=== PATIENT | male | born 1935 | race Caucasian/White ===

== ENCOUNTER → 2023-07-25 08:28 | Outpatient (CLI) | payer OTHER, SELFPAY ==
[2023-06-24 21:12] VITALS: BMI 31.5
[2023-07-25 09:42] LABS: Add Manual Diff / Slide Review NO; Basophils Absolute Auto 100 /uL (0-100); Basophils Percent Auto 0.8 % (0-2); Eosinophils Absolute Auto 300 /uL (0-450); Eosinophils Percent Auto 4.9 % (2-4); Hematocrit 34.7 % (41-53); Hemoglobin 11.6 g/dL (13.5-17.5); Lymphocytes Absolute Auto 1800 /uL (1100-4500); Lymphocytes Percent Auto 27.1 % (25-40); Mean Corpuscular HGB Conc 33.5 % (30-36); Mean Corpuscular Hemoglobin 30.1 PG (26-34); Monocytes Absolute Auto 700 /uL (0-900); Monocytes Percent Auto 10.6 % (3-14); Neutrophils Absolute Auto 3800 /uL (1500-7000); Neutrophils Percent Auto 56.6 % (50-75); Platelet Count 191 X10^3/uL (150-400); Red Blood Cell Count 3.86 X10^6/uL (4.5-5.9); Red Cell Distribution Width 19.5 % (11.6-14.8); White Blood Cell Count 6.8 X10^3/uL (4.5-11.0)
[2023-07-25 09:50] LABS: HEMOLYSIS < 15 (0-50); Iron 107 ug/dL (49-181)
[2023-07-25 09:51] LABS: Alanine Aminotransferase 32 IU/L (<50); Albumin 3.7 g/dL (3.5-5.0); Albumin Globulin Ratio 1.1 (1.0-2.8); Alkaline Phosphatase 85 U/L (38-126); Aspartate Aminotransferase 34 IU/L (17-59); BUN Creatinine Ratio 35.3 (6-22); Bilirubin Total 0.6 mg/dL (0.2-1.3); Blood Urea Nitrogen 61 mg/dL (9-20); Calcium 10.7 mg/dL (8.4-10.2); Carbon Dioxide 39 mmol/L (22-32); Chloride 96 mmol/L (98-107); Estimated Glomerular Filt Rate 37 mL/min (>60); Globulin 3.5 g/dL (1.7-4.1); Glucose 70 mg/dL (80-110); HEMOLYSIS < 15 (0-50); Potassium 4.2 mmol/L (3.4-5.1); Sodium 139 mmol/L (137-145); Total Protein 7.2 g/dL (6.3-8.2)
[2023-07-25 10:00] LABS: Percent Iron Saturation 46 % (20-50); Total Iron Binding Capacity 231 ug/dL (261-462); Transferrin 172 mg/dL (206-381)
[2023-07-25 10:39] LABS: Vitamin B12 506 pg/mL (239-931)
[2023-07-28 17:10] LABS: Appearance Urine UA CLEAR; Bilirubin Urine UA NEGATIVE (NEGATIVE); Color Urine UA YELLOW; Glucose Urine UA NEGATIVE (Negative); Ketones Urine UA NEGATIVE (NEGATIVE); Leukocyte Esterase Urine UA NEGATIVE (NEGATIVE); Nitrite Urine UA NEGATIVE (Negative); Occult Blood Urine UA NEGATIVE (Negative); Protein Urine UA NEGATIVE (Negative); Specific Gravity Urine UA <=1.005 (1.000-1.035); Urobilinogen Urine UA 0.2 E.U./dL (0.2)
[2023-07-28 17:18] LABS: Bacteria Urine None Seen; Culture Indicated Urine Cult Not Indicated; RBC Urine None Seen (0-5/HPF); Squamous Epithelial Cell Urine 0-1 /HPF (0-5/HPF); WBC Urine None Seen (0-5/HPF)
== END ==
PROVIDERS: PCP Family Medicine; Referring Provider Family Medicine; Visit Provider Family Medicine
DX: N18.4 Chronic kidney disease, stage 4 (severe) (principal); D64.89 Other specified anemias; I50.42 Chronic combined systolic (congestive) and diastolic (congestive) heart failure
CPT/HCPCS: 36415; 80053; 81001; 82607; 83540; 83550; 85025

== ENCOUNTER → 2023-08-17 08:01 | Outpatient (CLI) | payer OTHER, SELFPAY ==
[2023-06-24 21:12] VITALS: BMI 31.5
[2023-08-17 08:46] LABS: Add Manual Diff / Slide Review NO; Basophils Absolute Auto 100 /uL (0-100); Basophils Percent Auto 0.9 % (0-2); Eosinophils Absolute Auto 200 /uL (0-450); Eosinophils Percent Auto 3.1 % (2-4); Hematocrit 33.2 % (41-53); Hemoglobin 11.1 g/dL (13.5-17.5); Lymphocytes Absolute Auto 1600 /uL (1100-4500); Lymphocytes Percent Auto 24.3 % (25-40); Mean Corpuscular HGB Conc 33.4 % (30-36); Mean Corpuscular Volume 89.8 fL (80-100); Monocytes Absolute Auto 500 /uL (0-900); Monocytes Percent Auto 7.8 % (3-14); Neutrophils Absolute Auto 4300 /uL (1500-7000); Neutrophils Percent Auto 63.9 % (50-75); Platelet Count 217 X10^3/uL (150-400); Red Cell Distribution Width 19.2 % (11.6-14.8); White Blood Cell Count 6.7 X10^3/uL (4.5-11.0)
[2023-08-17 08:56] LABS: Alanine Aminotransferase 17 IU/L (<50); Albumin 3.6 g/dL (3.5-5.0); Alkaline Phosphatase 79 U/L (38-126); Aspartate Aminotransferase 25 IU/L (17-59); BUN Creatinine Ratio 25.9 (6-22); Bilirubin Total 0.8 mg/dL (0.2-1.3); Blood Urea Nitrogen 37 mg/dL (9-20); Calcium 9.5 mg/dL (8.4-10.2); Carbon Dioxide 38 mmol/L (22-32); Chloride 96 mmol/L (98-107); Estimated Glomerular Filt Rate 47 mL/min (>60); Globulin 3.5 g/dL (1.7-4.1); Glucose 129 mg/dL (80-110); HEMOLYSIS < 15 (0-50); Potassium 4.3 mmol/L (3.4-5.1); Sodium 138 mmol/L (137-145); Total Protein 7.1 g/dL (6.3-8.2)
[2023-08-17 08:57] LABS: HEMOLYSIS < 15 (0-50); Iron 83 ug/dL (49-181)
[2023-08-17 09:08] LABS: Percent Iron Saturation 40 % (20-50); Total Iron Binding Capacity 205 ug/dL (261-462); Transferrin 159 mg/dL (206-381)
== END ==
LOC: LAB 08:01
PROVIDERS: PCP Family Medicine; Referring Provider Family Medicine; Visit Provider Family Medicine
DX: N18.30 Chronic kidney disease, stage 3 unspecified (principal); I10 Essential (primary) hypertension; I50.9 Heart failure, unspecified; D64.9 Anemia, unspecified
CPT/HCPCS: 36415; 80053; 83540; 83550; 85025

== ENCOUNTER 2023-11-17 10:11 | Emergency (ER) | payer OTHER, SELFPAY ==
[2023-06-24 21:12] VITALS: BMI 31.5
[2023-11-17 10:15] VITALS: BP 146/70; PULSE 63; RESP 15; TEMP 36.4; O2SAT 95; BMI 25.9
--- NOTE | 2023-11-17 10:18 | DI.RAD.S_ITS ---
PROCEDURE: XR TIBIA FIBULA LT 2V INDICATIONS: fall, laceration TECHNIQUE: 2 views of the tibia and fibula were acquired. COMPARISON: None. FINDINGS: Bones: No fractures or dislocations. No suspicious bony lesions. Tricompartmental knee arthroplasty. Soft tissues: No suspicious soft tissue calcifications or masses. Soft tissue laceration to the anterior monteiro. Vascular calcifications. IMPRESSION: Anterior monteiro laceration without underlying bony abnormality. Dictated by: Escobar Oneill M.D. on 11/17/2023 at 11:58 Approved by: Escobar Oneill M.D. on 11/17/2023 at 11:59
--- NOTE | 2023-11-17 11:02 | ED_ITS ---
HPI - Fall <Aydin Jean PA-C - Last Filed: 11/17/23 12:06> General Chief Complaint: Fall Stated Complaint: Trip/fall,laceration on left monteiro,no thin/no loc Time Seen by Provider: 11/17/23 10:18 Source: patient and EMS Mode of arrival: EMS History of Present Illness HPI Narrative: This is a 87-year-old male presents emergency department due to a mechanical ground level fall where he states that he was using his walker when there was a heavy just a wind causing him to fall over an injuring his left monteiro. He was laceration to his left monteiro. He states he was not have any knee, ankle hip, or any other pain to the rest of his body. He had not hit his head or lose conscious. He was not on blood thinners. Tetanus is not up-to-date. Related Data Home Medications Medication Instructions Recorded Confirmed acetaminophen 325 mg tablet 650 mg PO PRN PRN Pain, Mild 04/22/22 10/03/23 vit C,A-Vq-uxdeg-lutein-zeaxan 1 tab PO DAILY 03/04/23 10/03/23 [PreserVision AREDS-2] Previous Rx's Medication Instructions Recorded polyethylene glycol 3350 17 17 g PO DAILY PRN constipation 08/10/22 gram/dose oral powder (Miralax) #238 grams Disabled Parking Permint #1 ea 10/14/22 nasal canula #30 ea 11/01/22 oxygen concentrator #1 ea 11/01/22 Oxygen Mask #1 ea 01/28/23 melatonin 3 mg tablet 3 mg PO BEDTIME PRN insomnia #30 02/10/23 tabs ascorbic acid (vitamin C) 500 mg 500 mg PO DAILY #90 tabs 05/18/23 tablet alfuzosin 10 mg tablet,extended 10 mg PO DAILY #90 tabs 07/28/23 release 24 hr (Uroxatral) amoxicillin 500 mg capsule 500 mg PO TID 90 days #270 caps 07/28/23 atorvastatin 40 mg tablet 40 mg PO QPM #90 tabs 07/28/23 docusate sodium 100 mg capsule 100 mg PO DAILY #90 caps 07/28/23 metoprolol tartrate 50 mg tablet 50 mg PO BID #180 tabs 07/28/23 pantoprazole 20 mg tablet,delayed 20 mg PO DAILY #90 tabs 07/28/23 release pramipexole 0.25 mg tablet 0.25 mg PO TID #270 tabs 07/28/23 furosemide 20 mg tablet 20 mg PO DAILY #90 tabs 08/01/23 ferrous sulfate 325 mg (65 mg 325 mg PO DAILY #90 tabs 08/31/23 iron) tablet lisinopril 40 mg tablet 40 mg PO QAM #90 tabs 09/07/23 torsemide 40 mg tablet 40 mg PO DAILY #90 tabs 10/13/23 Allergies Allergy/AdvReac Type Severity Reaction Status Date / Time daptomycin Allergy Severe severe Verified 11/17/23 10:26 eosinophilic pneumonia ceftriaxone Allergy Rash Verified 11/17/23 10:26 Review of Systems <Aydin Jean PA-C - Last Filed: 11/17/23 12:06> Review of Systems Narrative: GENERAL: Denies chills, fatigue, malaise, fever, sweats. HEENT: Denies sinus pain, ear pain, sore throat, difficulty swallowing, dizziness. RESPIRATORY: Denies dyspnea, cough, wheezing, hemoptysis, sputum. CARDIOVASCULAR: Denies chest pain, palpitations, orthopnea, edema, GASTROINTESTINAL: Denies nausea, vomiting, abdominal pain, diarrhea, constipation, melena. : Denies dysuria, frequency, incontinence, hematuria, urinary retention. MUSCULOSKELETAL: denies weakness, joint pain, or bony pain SKIN: Left monteiro laceration NEUROLOGIC: Denies weakness, headache, numbness, change in speech, confusion, seizures, incoordination. PSYCHIATRIC: No concerning psychosocial issues. 12 point review of systems is negative except for those stated above Patient History <Aydin Jean PA-C - Last Filed: 11/17/23 12:06> Medical History Bed sore Renal insufficiency Thrombocytopenia Superficial laceration Toe pain Scalp laceration Chronic bronchitis Cellulitis of toe, right Chronic bronchitis Bilateral leg edema Seasonal allergic rhinitis Cellulitis History of atrial fibrillation Erectile dysfunction BPH w urinary obs/LUTS Venous stasis History of DVT (deep vein thrombosis) History of pulmonary embolism Osteoarthritis of right hip Right hip pain Right shoulder pain BPH (benign prostatic hyperplasia) Heart murmur Atrial fibrillation Low back pain (~12/2015) GERD (gastroesophageal reflux disease) (Unknown) Arthritis (Unknown) Restless leg syndrome (Unknown) Macular degeneration of both eyes (~07/2016) Colon polyps (Unknown) Hypertension (Unknown) Stroke (~2005) Surgical History Hx of cataract surgery (Unknown) History of tonsillectomy History of knee replacement Family History Father Old age Mother Pancreatic cancer Spouse Urinary tract infection Social History marital status: household members: none occupational status: previously employed Smoking Status: Former smoker Tobacco: How many years used: 43 alcohol intake: current caffeine: Yes Smoking Status: Former smoker alcohol intake frequency: a few times a week Substance Use Type: does not use Exam <Aydin Jean PA-C - Last Filed: 11/17/23 12:06> Narrative Exam Narrative: GENERAL: Well-developed patient, in mild distress. HEAD: Atraumatic. Normocephalic. EYES: Pupils equal round and reactive. Extraocular motions intact. No scleral i cterus. No injection or drainage. ENT: Nose without bleeding, purulent drainage. Throat without erythema, tonsillar hypertrophy or exudate. Airway patent. NECK: Trachea midline. Non tender EXTREMITIES: No edema or joint tenderness. NEURO: AOx3. SKIN: Approximately 8 cm curvilinear laceration to the anterior left monteiro. No surrounding bony tenderness to palpation. No tenderness to palpation to the knee, ankle, or left hip. Some oozing bleeding. No significant amount of debris or foreign bodies. Neurovascularly intact throughout left lower extremity. Initial Vital Signs Initial Vital Signs: Vital Signs Temperature 97.5 F L 11/17/23 10:15 Pulse Rate 63 11/17/23 10:15 Respiratory Rate 15 11/17/23 10:15 Blood Pressure 146/70 H 11/17/23 10:15 Pulse Oximetry 95 11/17/23 10:15 Oxygen Delivery Method Room Air 11/17/23 10:15 <Candida Nieves DO - Last Filed: 11/18/23 10:38> Initial Vital Signs Initial Vital Signs: Vital Signs Temperature 97.5 F L 11/17/23 10:15 Pulse Rate 63 11/17/23 10:15 Respiratory Rate 15 11/17/23 10:15 Blood Pressure 146/70 H 11/17/23 10:15 Pulse Oximetry 95 11/17/23 10:15 Oxygen Delivery Method Room Air 11/17/23 10:15 Procedures <Aydin Jean PA-C - Last Filed: 11/17/23 12:06> Laceration Repair Laceration 1: Time of procedure: 11:46 Site: other (Left monteiro) Size (cm): 8 Description: linear Depth: simple, single layer Local Anesthetic: lidocaine 1% and with epi Amount of anesthesia used (mL): 10 Pre-repair: wound explored, irrigated extensively and cleansed with chlorh exadine Skin layer closed with: nylon Skin layer suture size: 4-0 Number of sutures: 10 Technique: simple, interrupted Course <Aydin Jean PA-C - Last Filed: 11/17/23 12:06> Orders Ordered: Discontinued Medications Diphtheria/Tetanus/Acell Pertussis (Tet,Diph,Pertuss(Acell),Vac/Pf 0.5 Ml Sy ringe) 0.5 ml IM .ONCE ONE Stop: 11/17/23 10:19 Last Admin: 11/17/23 11:21 Dose: 0.5 ml Documented By: MARCI Lidocaine/Epinephrine (Lidocaine 1% W/Epi) 4 ml INJ INTRA-OP ONE Stop: 11/17/23 11:09 Last Admin: 11/17/23 11:21 Dose: 4 ml Documented By: MARCI Vital Signs Vital signs: Vital Signs - 8 hr 11/17/23 10:15 Temperature 97.5 F L Pulse Rate 63 Respiratory Rate 15 Blood Pressure 146/70 H Pulse Oximetry 95 Oxygen Delivery Method Room Air <Candida Nieves DO - Last Filed: 11/18/23 10:38> Orders Ordered: Discontinued Medications Diphtheria/Tetanus/Acell Pertussis (Tet,Diph,Pertuss(Acell),Vac/Pf 0.5 Ml Syringe) 0.5 ml IM .ONCE ONE Stop: 11/17/23 10:19 Last Admin: 11/17/23 11:21 Dose: 0.5 ml Documented By: MARCI Lidocaine/Epinephrine (Lidocaine 1% W/Epi) 4 ml INJ INTRA-OP ONE Stop: 11/17/23 11:09 Last Admin: 11/17/23 11:21 Dose: 4 ml Documented By: [facility] Vital Signs Vital signs: Vital Signs - 8 hr 11/17/23 10:15 Temperature 97.5 F L Pulse Rate 63 Respiratory Rate 15 Blood Pressure 146/70 H Pulse Oximetry 95 Oxygen Delivery Method Room Air MDM - Fall <Aydin Jean PA-C - Last Filed: 11/17/23 12:06> Imaging Data Extremity x-ray #1: Radiologist's Impression: [address] [address] XRay Report Signed Patient: Kyrie Mendoza MR#: [id number] : 1935 Acct:[id number] Age/Sex: 87 / M Date of Service: 11/17/23 Loc: ED Accession Number: [id number] Procedure: XR tibia fibula LT 2V Ordering Provider: Candida Nieves D.O. PROCEDURE: XR TIBIA FIBULA LT 2V INDICATIONS: fall, laceration TECHNIQUE: 2 views of the tibia and fibula were acquired. COMPARISON: None. FINDINGS: Bones: No fractures or dislocations. No suspicious bony lesions. Tricompartmental knee arthroplasty. Soft tissues: No suspicious soft tissue calcifications or masses. Soft tissue laceration to the anterior monteiro. Vascular calcifications. IMPRESSION: Anterior monteiro laceration without underlying bony abnormality. Dictated by: Escobar Oneill M.D. on 11/17/2023 at 11:58 Approved by: Escobar Oneill M.D. on 11/17/2023 at 11:59 [facility] Narrative Medical decision making narrative: ED course: This is a 87-year-old male presents to the emergency department due to a left monteiro laceration. He had no surrounding bony tenderness to palpation. X-rays negative for fractures. Laceration was closed without complications as noted in the procedure note above. Recommended he follow up with primary care in 10-14 days for suture removal. No significant contamination to the wound and no antibiotics will be prescribed. Tetanus was updated CC: Left monteiro laceration Complicating co-morbidities: On chronic oxygen, CKD, CHF, venous stasis, restless leg syndrome Data collected from: Previous notes Medical records reviewed: Patient was last seen about 6 months ago due to hip pain. History of chronic hypoxemic respiratory failure on chronic oxygen and calm, chronic kidney disease, CHF, , chronic venous stasis, restless leg. Fell to the floor with some pelvic pain. X-ray negative and patient was discharged. Differential considered, but not limited to: Laceration, fracture, neurovascular injury Exam documented above, pertinent findings include: Neurovascularly intact throughout, laceration to left monteiro Lab Test results independently reviewed as above. Pertinent findings: None obtained Imaging studies independently reviewed: X-ray shows no fracture Scores Used: None MIPS Elements: None Consultations: None Treatments: Laceration repair as noted above, tetanus was updated Re-evaluations: None Discussion: Discussed plan with the patient was comfortable with the plan Diagnosis: Left monteiro laceration Disposition: see below, along with detailed discharge instructions that have been reviewed with patient as well as indications for ED re-evaluation and additional outpatient follow up Discharge Plan Departure Patient Disposition: Home Clinical Impression: Laceration of leg Activity Restrictions/Additional Instructions: Thank you for coming to the [facility] Emergency Department today. I am glad that we are able to close the laceration to her left leg. Please follow up with the primary care provider or the walk-in clinic in 10-14 days for suture removal. Please monitor the wound for any spreading redness, purulent drainage, fevers, or any other concerning signs or symptoms. Please return to the emergency department if you develop any of these. I hope you feel better soon. Please follow up with your primary care provider within a week if your symptoms continue. If you do not have a primary care provider please contact the [facility] Resource line at [phone]. They will ask some questions about your medical history and help you get set up with a provider in the community. Prescriptions: No Action (DME) oxygen concentrator See Rx Instructions .Route .MEDSUPPLY Qty: 1 0RF Rx Instructions: 1-4L PRN, titrate to 90% oximeter (DME) nasal canula See Rx Instructions .Route .MEDSUPPLY Qty: 30 12RF Rx Instructions: use to administer oxygen (DME) Oxygen Mask Covering nose/mouth See Rx Instructions .Route .MEDSUPPLY Qty: 1 12RF Rx Instructions: Use to administer oxygen melatonin 3 mg tablet 3 mg PO BEDTIME PRN (Reason: insomnia) Qty: 30 3RF alfuzosin [Uroxatral] 10 mg tablet extended release 24 hr 10 mg PO DAILY Qty: 90 3RF Rx Instructions: administer after the same meal each day amoxicillin 500 mg capsule 500 mg PO TID 90 Days Qty: 270 2RF atorvastatin 40 mg tablet 40 mg PO QPM Qty: 90 3RF Rx Instructions: TAKE 1 TABLET BY MOUTH EVERY NIGHT AT BEDTIME docusate sodium 100 mg capsule 100 mg PO DAILY Qty: 90 1RF metoprolol tartrate 50 mg tablet 50 mg PO BID Qty: 180 3RF pantoprazole 20 mg tablet,delayed release (DR/EC) 20 mg PO DAILY Qty: 90 3RF Rx Instructions: TAKE 1 TABLET BY MOUTH EVERY DAY pramipexole 0.25 mg tablet 0.25 mg PO TID Qty: 270 1RF Rx Instructions: TAKE 1 TABLET (0.25 MG) BY MOUTH THREE TIMES DAILY furosemide 20 mg tablet 20 mg PO DAILY Qty: 90 1RF Rx Instructions: take at lunch ferrous sulfate 325 mg (65 mg iron) tablet 325 mg PO DAILY Qty: 90 1RF Rx Instructions: Take with vitamin C lisinopril 40 mg tablet 40 mg PO QAM Qty: 90 3RF Rx Instructions: Hold for SBP under 100 or HR under 60 torsemide 40 mg tablet 40 mg PO DAILY Qty: 90 1RF Rx Instructions: take 40 mg torsemide in morning vit C,G-Sh-flwml-lutein-zeaxan [PreserVision AREDS-2] 1 tab PO DAILY ascorbic acid (vitamin C) 500 mg tablet 500 mg PO DAILY Qty: 90 0RF polyethylene glycol 3350 [Miralax] 17 gram/dose powder 17 g PO DAILY PRN (Reason: constipation) Qty: 238 0RF (DME) Disabled Parking Permint See Rx Instructions .ROUTE .MEDSUPPLY Qty: 1 0RF Rx Instructions: I find this patient to be medically disabled and qualified for Disabled Parking as indicated and signed on the Accompanying Disabled Parking Application for individuals. acetaminophen 325 mg tablet 650 mg PO PRN MDD 3000 mg PRN (Reason: Pain, Mild) Referrals: Bentley De La Rosa DO [Primary Care Provider] - Stand Alone Forms: Patient Portal/API ED Sign-out <Candida Nieves DO - Last Filed: 11/18/23 10:38> Cosign ED Attending Cosignature Attestation: I was immediately available in the department for consultation.
[2023-11-17] MEDS: TET,DIPH,PERTUSS(ACELL),VAC/PF 0.5 ML SYRINGE IM (11:21)
[2023-11-17] MEDS: LIDOCAINE 1% W/EPI 4 ML INJ (11:21)
[2023-11-17 12:26] VITALS: BP 185/81; PULSE 55; RESP 14; O2SAT 97
== END 2023-11-17 12:28 | disposition home or self-care (01) ==
PROVIDERS: Emergency Provider Physician Assistant Medical; PCP Family Medicine
DX: S81.812A Laceration without foreign body, left lower leg, initial encounter (principal); W01.0XXA Fall on same level from slipping, tripping and stumbling without subsequent striking against object, initial encounter; Z23 Encounter for immunization
CPT/HCPCS: 12004; 73590; 90471; 99283; 90715